=== PATIENT | male | born 1995 | race Two or more races ===

== ENCOUNTER 2022-01-05 22:05 | Emergency (ER) | payer MEDICAID, OTHER ==
[~2022-01-05] VITALS: Ht 170.2 cm; Wt 136.1 kg
[2022-01-05 22:28] VITALS: BP 138/95
[2022-01-05] MEDS ORDERED: TETRACAINE 1% 2 ML AMP INJ ONE (22:55)
[2022-01-05] MEDS ORDERED: FLUORESCEIN OPTH STRIP 1 MG OP ONE (22:55)
--- NOTE | 2022-01-06 00:12 | NUR ---
Dr. Huang examining patient.
[2022-01-06] MEDS ORDERED: TOBR5SOL17 LEFT EYE (00:42)
[2022-01-06 00:55] VITALS: BP 122/69
--- NOTE | 2022-01-06 00:55 | NUR ---
d/c with VSS. d/c education given .opportunity to ask questions given and answered. rx of tobramycin givne.
== END 2022-01-06 00:55 | disposition home or self-care (01) ==
LOC: MED 22:05
DX: S05.02XA Injury of conjunctiva and corneal abrasion without foreign body, left eye, initial encounter (principal); S05.01XA Injury of conjunctiva and corneal abrasion without foreign body, right eye, initial encounter; X58.XXXA Exposure to other specified factors, initial encounter; Y93.89 Activity, other specified; Y92.89 Other specified places as the place of occurrence of the external cause; Y99.8 Other external cause status
CPT/HCPCS: 99283; J3490